=== PATIENT | male | born 1995 | race African-American/Black ===

== ENCOUNTER 2018-09-09 10:43 | Emergency (ER) | payer MEDICAID ==
[~2018-09-09 10:43] MED LIST: IBUPROFEN
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
--- NOTE | 2018-09-09 11:48 | RADIOLOGY IMAGING REPORT ---
FACILITY: [facility] [place] PATIENT NAME: Rashard Rojas : 1995 MR: [id number] V: [id number] EXAM DATE: [id number] ORDERING PHYSICIAN: AMAN DUKE TECHNOLOGIST: Location: [facility] [place] Patient: Rashard Rojas : 1995 Visit/Account:[id number] Date of Sevice: 09/09/2018 Exam type: HAND COMPLETE LEFT History: bite w infection to small finger Comparison: None. Findings: There is extensive soft tissue swelling surrounding the left fifth finger. There suggestion of a sma ll amount of soft tissue gas. No radiopaque soft tissue foreign body seen. No underlying fracture d islocation is identified IMPRESSION: 1. Extensive soft tissue spine surrounding the left fifth finger. There suggestion of a small amoun t of soft tissue gas consistent with the history of a wound infection. No underlying fracture dislocation or radiopaque foreign body seen Report Dictated By: Khadijah Cano MD at 09/09/2018 11:36 AM Report E-Signed By: Khadijah Cano MD at 09/09/2018 11:43 AM WSN:[email or web address]
[2018-09-09] MEDS ORDERED: AMOX-559 PO (12:05)
[2018-09-09] MEDS ORDERED: cefTRIAXone 1 GM VIAL IM ONE (12:05)
[2018-09-09] MEDS ORDERED: LIDOCAINE 1% MDV 200 MG/20 ML INJ ONE (12:05)
[2018-09-09 12:45] VITALS: BP 140/92
== END 2018-09-09 12:46 | disposition home or self-care (01) ==
LOC: ER 10:57
DX: L03.012 Cellulitis of left finger (principal); Y04.1XXA Assault by human bite, initial encounter
CPT/HCPCS: 73130; 96372; 99283; J0696; J2001